=== PATIENT | female | born 1955 | race Caucasian/White ===

== ENCOUNTER → 2017-06-03 | Outpatient (CLI) | payer BC ==
[~2017-06-03] MED LIST: ALBUTEROL0.09 MG/A4 IH; ALBUTEROL0.83 MG/ML IH; AMOXICILLIN 8751 TAB PO; CEPHALEXIN500 M1 PO; FLOVENT 110MCG7.9 GM IH; HCTZ 25MG TAB25 MG PO; NORCO 325 MG-51 TAB PO; NORVASC 5MG5 MG/TAB PO; NORVASC2.5 MG PO; PERCOCET 325 MG1 TA2 PO; PERCOCET 325 MG1 TAB PO; SENNA8.6 MG PO
== END ==
LOC: COL.RAD 10:09
DX: C79.51 Secondary malignant neoplasm of bone (principal); C80.1 Malignant (primary) neoplasm, unspecified; R91.8 Other nonspecific abnormal finding of lung field; R59.0 Localized enlarged lymph nodes; K44.9 Diaphragmatic hernia without obstruction or gangrene; E27.8 Other specified disorders of adrenal gland; K80.20 Calculus of gallbladder without cholecystitis without obstruction; Z87.311 Personal history of (healed) other pathological fracture
CPT/HCPCS: J7050; Q9967

== ENCOUNTER → 2017-06-05 | Outpatient (CLI) | payer BC ==
[~2017-06-05] VITALS: Ht 175.3 cm; Wt 95.0 kg
[2017-06-05 07:38] VITALS: BP 152/93; PULSE 105
[2017-06-05 09:03] VITALS: BP 163/106; PULSE 106
[2017-06-05 10:03] VITALS: BP 125/81
== END ==
LOC: COL.RAD 07:02
DX: R59.0 Localized enlarged lymph nodes (principal); C79.9 Secondary malignant neoplasm of unspecified site; R91.8 Other nonspecific abnormal finding of lung field
CPT/HCPCS: 25757

== ENCOUNTER → 2017-06-07 | Outpatient (CLI) | payer BC | LOC: COL.VAS 13:00 | DX: M79.89 Other specified soft tissue disorders (principal) ==